=== PATIENT | male | born 1990 | race Caucasian/White ===

== ENCOUNTER 2019-03-12 17:44 | Emergency (ER) | payer SELFPAY ==
[~2019-03-12] VITALS: Ht 180.3 cm; Wt 59.0 kg
[2019-03-12] MEDS ORDERED: LIDOCAINE 1%-EPI 1:100,000 20 ML VIAL ONE (18:30)
[2019-03-12] MEDS ORDERED: LIDOCAINE 1%-EPI 1:100,000 20 ML VIAL TP ONE (19:00)
[2019-03-12] MEDS ORDERED: HYDROCODONE/APAP 5/325MG 1 EACH TABLET PO ONE (19:00)
--- NOTE | 2019-03-12 19:00 | NUR ---
PT BIBSELF C/O CHIN LACERATION, FACIAL AND R KNEE ABRASION FOLLOWING FALLING OFF SCOOTER. PT AXO4. RESPIRATIONS EVEN AND UNLABORED. 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 PENDING EVAL FROM [facility].
[2019-03-12] MEDS ORDERED: HYDROCODONE/APAP 5/325MG 1 EACH TABLET ONE (19:08)
--- NOTE | 2019-03-12 19:36 | NUR ---
ER GOURMET COFFEE ATTENDANT AT BEDSIDE.
--- NOTE | 2019-03-12 20:16 | NUR ---
EMT AT BEDSIDE FOR SPLINT.
--- NOTE | 2019-03-12 20:37 | NUR ---
Patient discharged to home in stable condition. Written and verbal after care instructions given. Patient verbalizes understanding of instruction.
[2019-03-12 20:40] VITALS: BP 120/71
== END 2019-03-12 20:55 | disposition home or self-care (01) ==
LOC: ER 17:44
DX: S52.121A Displaced fracture of head of right radius, initial encounter for closed fracture (principal); S01.81XA Laceration without foreign body of other part of head, initial encounter; S01.511A Laceration without foreign body of lip, initial encounter; S63.591A Other specified sprain of right wrist, initial encounter; W05.1XXA Fall from non-moving nonmotorized scooter, initial encounter; Y93.89 Activity, other specified; Y92.89 Other specified places as the place of occurrence of the external cause; Y99.8 Other external cause status
CPT/HCPCS: 12013; 29105; 73080; 73110; 99284; A6402; A6403; J3490